=== PATIENT | female | born 1945 | race Caucasian/White ===

== ENCOUNTER 2022-10-05 08:25 | Outpatient (OUT) | payer MEDICARE, OTHER, SELFPAY ==
--- NOTE | 2022-10-05 08:36 | XR_ITS ---
The [address] [address] Patient Name: FLORESITA BEAN MRN: [id number] date: 1945 Sex: F Assigned Patient Location: [facility] Current Patient Location: [facility] Accession/Order Number: [id number] Exam Date: 10/05/2022 08:40 Report Date: 10/05/2022 09:10 At the request of: ANICETO COON Procedure: XR chest 2V EXAM: XR chest 2V HISTORY: Upper Respiratory Tract Infection J06.9 COMPARISON: None. TECHNIQUE: PA and lateral views of the chest. FINDINGS: The cardiomediastinal silhouette is normal. No focal consolidation is identified. There is no pneumothorax. No pleural effusion is noted. The osseous structures are intact. XR/XR chest 2V IMPRESSION: No acute cardiopulmonary process. Electronically authenticated by: JOSHUA BEST Date: 10/05/2022 09:10
== END 2022-10-05 08:26 | disposition home or self-care (01) ==
LOC: RAD 08:29
PROVIDERS: PCP Family Medicine; Visit Provider Nurse Practitioner
DX: J06.9 Acute upper respiratory infection, unspecified (principal)
CPT/HCPCS: 71046

== ENCOUNTER 2024-05-21 14:13 | Emergency (ER) | payer MEDICARE, OTHER, SELFPAY ==
[2024-05-21] VITALS (16 sets, daily range): BP systolic 106–121; BP diastolic 61–77; PULSE 66–74; TEMP 36.6; O2SAT 95–97; BMI 23.8
--- NOTE | 2024-05-21 14:18 | ECG_ITS ---
The [facility] Test Date: 2024-05-21 Pat Name: FLORESITA BEAN Department: Room: - Gender: Female Social Services Designee: : 1945 Requested By: [id number] Order Number: [id number] Reading MD: RENALDO CARDOZA Measurements Intervals [place] Rate: 67 P: 70 NE: 184 QRS: 65 QRSD: 78 T: 57 QT: 402 QTc: 418 Interpretive Statements 1100 Sinus rhythm 9110 normal ECG Compared to ECG 10/13/2016 14:31:03 No significant changes Electronically Signed On 05-21-2024 14:58:30 EDT by RENALDO CARDOZA
--- NOTE | 2024-05-21 14:20 | ED_ITS ---
HPI HPI - General Adult General Chief complaint: Dizziness Stated complaint: OTHER Time Seen by Provider: 05/21/24 14:18 Source: patient and EMR Mode of arrival: ambulance History of Present Illness HPI narrative: Patient is a 78-year-old female brought to the emergency department by EMS for near syncopal episode at a local social club in [place]. She was sitting at a table playing a game at the [employer] when another gentleman in the room thought that the patient looked a little out of it. 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 They took her outside for fresh air which made her feel better. She did not have a syncopal episode or lose consciousness. EMS was called. Patient states she was feeling a little dizzy and had a headache for the last couple days. She does not currently have a headache and denies any visual changes, chest pain or shortness of breath. She has not had any peripheral paresthesias. She is awake, alert and able to transfer from the EMS cart to the exam cart in the ER on arrival. She has no significant focal medical complaints at this time. She admits that she did not have much to eat today. After my evaluation, patient stated to nursing staff that prior to the incident she was feeling mild chest pain or shortness of breath. She does not have these on arrival to the ER. Related Data Allergies Allergy/AdvReac Type Severity Reaction Status Date / Time No Known Drug Allergies Allergy Verified 05/21/24 14:20 Opioid HPI Opioid Management Most Recent Opioid Data: No Data to Display Review of Systems ROS Constitutional Denies: fever or chills Ears, nose, mouth, and throat Denies: throat pain or nasal congestion Cardiovascular Denies: chest pain Respiratory Denies: shortness of breath or cough Gastrointestinal Denies: nausea or vomiting Musculoskeletal Denies: back pain or neck pain Integumentary/Breast Denies: rash Neurological Reports: headache and dizziness; Denies: numbness in extremities or weakness in extremities Hematologic/Lymphatic Denies: easy bruising or easy bleeding PFSH PFS Social History Little interest or pleasure in doing things: not at all Feeling down, depressed, or hopeless: not at all Exam Narrative Exam Narrative: Gen.: Awake, alert, in no distress Head: Normocephalic, atraumatic ENT: Moist mucous membranes Respiratory: No respiratory distress, lungs clear bilaterally Cardio: Regular rate and rhythm Gastrointestinal: Abdomen is soft, nondistended and nontender to palpation Extremities: Moves extremities equally Psych: Normal mood and affect Neuro: No focal neuro deficit Skin: Warm, dry, intact Constitutional Vital Signs, click to edit/add: Last Vital Signs Temp 97.8 F 05/21/24 14:17 Pulse 66 05/21/24 14:17 Resp 18 05/21/24 14:17 BP 112/67 05/21/24 14:17 Pulse Ox 96 05/21/24 14:17 O2 Del Method Room Air 05/21/24 14:17 Course Vital Signs Vital signs: Vital Signs Temperature 97.8 F 05/21/24 14:17 Pulse Rate 66 05/21/24 14:17 Respiratory Rate 18 05/21/24 14:17 Blood Pressure 112/67 05/21/24 14:17 Pulse Oximetry 96 05/21/24 14:17 Oxygen Delivery Method Room Air 05/21/24 14:17 Temperature 97.8 F 05/21/24 14:17 Pulse Rate 66 05/21/24 14:17 Respiratory Rate 18 05/21/24 14:17 Blood Pressure 112/67 05/21/24 14:17 Pulse Oximetry 96 05/21/24 14:17 Oxygen Delivery Method Room Air 05/21/24 14:17 Medical Decision Making MDM Narrative Medical decision making narrative: Patient had no chest pain or shortness of breath in the emergency department. She is hemodynamically stable with no hypotension. She was treated with IV fluids his labs show she is hemoconcentrated. She was given food and tolerated p.o. easily. She declined a head CT. Her cardiac workup is normal with 2 troponins. On reevaluation, she is eager for discharge. Her family member at bedside will stay with her tonight and they will return to the ER if symptoms change or worsen. She was encouraged to increase fluids and eat regularly. Return to the ER if symptoms change or worsen. Follow-up closely with PCP SUPERVISED APC VISIT, PHYSICIAN ATTESTATION: Based on the medical record the care appears appropriate. ? Medical Records Medical records reviewed: Yes I reviewed the patient's medical records Lab Data Lab results reviewed: Yes I reviewed the patient's lab results Labs: Lab Results 05/21/24 05/21/24 Range/Units 14:24 15:39 WBC 12.0 H (4.0-11.0) 10^3/uL RBC 5.92 H (4.20-5.40) 10^6/uL Hgb 17.1 H (12.0-16.0) g/dL Hct 51.2 H (36.0-48.0) % MCV 86.5 (81.0-99.0) fL MCH 28.9 (26.7-34.0) pg MCHC 33.4 (29.9-35.2) g/dL RDW 13.3 (11.0-15.0) % Plt Count 230 (150-450) 10^3/uL MPV 10.5 (9.5-13.5) fL Neut % (Auto) 58.4 (43.0-75.0) % Lymph % (Auto) 25.6 (20.5-60.0) % [place] % (Auto) 7.8 (1.7-12.0) % Eos % (Auto) 7.5 H (0.9-7.0) % Baso % (Auto) 0.4 (0.2-2.0) % Neut # (Auto) 7.0 H (1.4-6.5) 10^3/uL Lymph # (Auto) 3.1 (1.2-3.8) 10^3/uL [place] # (Auto) 0.9 H (0.3-0.8) 10^3/uL Eos # (Auto) 0.9 H (0.0-0.7) 10^3/uL Baso # (Auto) 0.1 (0.0-0.1) 10^3/uL Abs Immat Gran (auto) 0.03 (0.00-0.03) 10^3/uL Imm/Tot Granulo (auto) 0.3 (0.0-0.5) % PT 10.3 (9.0-11.6) sec INR 0.97 Sodium 138 (136-145) mmol/L Potassium 3.5 (3.5-5.1) mmol/L Chloride 101 (98-107) mmol/L Carbon Dioxide 25.9 (21.0-32.0) mmol/L Anion Gap 14.6 BUN 23.0 H (7.0-18.0) mg/dL Creatinine 1.18 H (0.55-1.02) mg/dL Est GFR ( Amer) 54 L (>=60 mL/min/1.73m^2) Est GFR (Non-Af Amer) 44 L (>=60 mL/min/1.73m^2) BUN/Creatinine Ratio 19.5 Glucose 103 (74-106) mg/dL Lactate 1.4 (0.4-2.0) mmol/L Calcium 10.1 (8.5-10.1) mg/dL Total Bilirubin 0.5 (0.2-1.0) mg/dL AST 69 H (15-37) U/L ALT 41 (14-59) U/L Alkaline Phosphatase 69 (46-116) U/L Troponin I High Sens 5.6 5.8 (4.0-51.3) pg/mL Total Protein 7.5 (6.4-8.2) g/dL Albumin 3.7 (3.4-5.0) g/dL Globulin 3.8 g/dL Albumin/Globulin Ratio 1.0 TSH 4.126 H (0.358-3.740) uIU/mL Free T4 1.10 (0.76-1.46) ng/dL Free T3 2.53 (2.18-3.98) pg/mL Imaging Data Chest x-ray: Attestation: I have reviewed the pertinent imaging results. ECG Data Attestation: I personally reviewed and interpreted this ECG as follows: (Normal sinus rhythm at a rate of 67, no acute ST elevation or ectopy. EKG reviewed by attending physician) Discharge Plan Discharge Chief Complaint: Dizziness Clinical Impression: Near syncope, Dizziness, Dehydration Patient Disposition: Home, Self-Care Time of Disposition Decision: 16:36 Condition: Good Print Language: Sinhala Instructions: Dehydration (ED), Near Syncope (ED) Referrals: BRANDON KHAN [Primary Care Provider] - 1 week
[2024-05-21 14:37] LABS: Basophils Absolute Auto 0.1 10^3/uL (0.0-0.1); Basophils Percent Auto 0.4 % (0.2-2.0); Eosinophils Absolute Auto 0.9 10^3/uL (0.0-0.7); Eosinophils Percent Auto 7.5 % (0.9-7.0); Hematocrit 51.2 % (36.0-48.0); Hemoglobin 17.1 g/dL (12.0-16.0); Immature Granulocytes Abs Auto 0.03 10^3/uL (0.00-0.03); Immature Granulocytes Pct Auto 0.3 % (0.0-0.5); Lymphocytes Absolute Auto 3.1 10^3/uL (1.2-3.8); Lymphocytes Percent Auto 25.6 % (20.5-60.0); Mean Corpuscular HGB Conc 33.4 g/dL (29.9-35.2); Mean Corpuscular Hemoglobin 28.9 pg (26.7-34.0); Mean Corpuscular Volume 86.5 fL (81.0-99.0); Mean Platelet Volume 10.5 fL (9.5-13.5); Monocytes Absolute Auto 0.9 10^3/uL (0.3-0.8); Monocytes Percent Auto 7.8 % (1.7-12.0); Neutrophils Percent Auto 58.4 % (43.0-75.0); Platelet Count 230 10^3/uL (150-450); Red Blood Count 5.92 10^6/uL (4.20-5.40); Red Cell Distribution Width 13.3 % (11.0-15.0)
[2024-05-21 14:46] LABS: INR 0.97; Prothrombin Time 10.3 sec (9.0-11.6)
[2024-05-21] MEDS: 0.9 % SODIUM CHLORIDE 1,000 ML 999 ML IV (15:02)
--- NOTE | 2024-05-21 15:14 | PC.NURSE ---
PT REFUSING CT SCAN OF HEAD AT THIS TIME. EXPLAINED TO PT THAT BECAUSE SHE HAD DIZZINESS THEY WOULD DOUBLE CHECK A HEAD CT TO RULE OUT ANY DETRIMENTAL DX.
[2024-05-21 15:15] LABS: Lactate/Lactic Acid 1.4 mmol/L (0.4-2.0)
[2024-05-21 15:22] LABS: Alanine Aminotransferase 41 U/L (14-59); Albumin Level 3.7 g/dL (3.4-5.0); Alkaline Phosphatase 69 U/L (46-116); Anion Gap 14.6; Aspartate Amino Transferase 69 U/L (15-37); BUN Creatinine Ratio 19.5; Bilirubin Total 0.5 mg/dL (0.2-1.0); Calcium 10.1 mg/dL (8.5-10.1); Carbon Dioxide 25.9 mmol/L (21.0-32.0); Chloride 101 mmol/L (98-107); Estimated GFR (African America 54 (>=60 mL/min/1.73m^2); Estimated GFR (Non-African Ame 44 (>=60 mL/min/1.73m^2); Globulin 3.8 g/dL; Glucose 103 mg/dL (74-106); Potassium 3.5 mmol/L (3.5-5.1); Sodium 138 mmol/L (136-145); Thyroid Stimulating Hormone 4.126 uIU/mL (0.358-3.740); Total Protein 7.5 g/dL (6.4-8.2); Troponin I High Sensitivity 5.6 pg/mL (4.0-51.3)
[2024-05-21 16:07] LABS: Free T3 2.53 pg/mL (2.18-3.98)
[2024-05-21 16:08] LABS: Troponin I High Sensitivity 5.8 pg/mL (4.0-51.3)
== END 2024-05-21 16:43 | disposition home or self-care (01) ==
PROVIDERS: Physician Assistant; Emergency Provider Emergency Medicine; PCP Family Medicine
DX: R55 Syncope and collapse (principal); E86.0 Dehydration; R42 Dizziness and giddiness; R07.9 Chest pain, unspecified; R06.02 Shortness of breath; R51.9 Headache, unspecified
CPT/HCPCS: 36415; 71045; 80053; 81001; 83605; 84439; 84443; 84481; 84484; 85025; 85610; 93005; 96360; 99285